=== PATIENT | female | born 1980 | race Caucasian/White ===

== ENCOUNTER 2016-07-15 04:54 | Emergency (ER) | payer OTHER ==
[~2016-07-15] VITALS: Ht 154.9 cm; Wt 62.6 kg
--- NOTE | 2016-07-15 04:54 | NUR ---
[facility] TO ER OF1
[2016-07-15 04:56] VITALS: BP 113/86
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
--- NOTE | 2016-07-15 04:56 | NUR ---
Patient being evaluated by physician.
[2016-07-15 05:02] VITALS: BP 113/86
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
== END 2016-07-15 05:02 ==
LOC: MED 04:54
DX: Z02.89 Encounter for other administrative examinations (principal); V89.2XXA Person injured in unspecified motor-vehicle accident, traffic, initial encounter; Y93.89 Activity, other specified; Y92.89 Other specified places as the place of occurrence of the external cause; Y99.8 Other external cause status